=== PATIENT | female | born 1965 | race Caucasian/White ===

== ENCOUNTER 2025-07-10 14:51 | Emergency (ER) | payer MEDICAID ==
[~2025-07-10] VITALS: Ht 167.6 cm; Wt 89.3 kg
[2025-07-10 14:56] VITALS: BP 188/86; PULSE 79; RESP 16; TEMP 98; O2SAT 98
--- NOTE | 2025-07-10 15:08 | ELECTROCARDIOGRAPH REPORT ---
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 JOSE De Leon Measurements Intervals [place] Rate: 78 P: 32 OK: 134 QRS: 11 QRSD: 91 T: 236 QT: 450 QTc: 513 Interpretive Statements Sinus rhythm Nonspecific repol abnormality, diffuse leads Prolonged QT interval Electronically Signed On 07-11-2025 17:18:[address] JOSE De Leon Please click the below link to view image of tracing.
== END 2025-07-10 17:48 | disposition left against medical advice (07) ==
LOC: ER 14:53
DX: R51.9 Headache, unspecified (principal); R42 Dizziness and giddiness; Z53.21 Procedure and treatment not carried out due to patient leaving prior to being seen by health care provider
CPT/HCPCS: 93005; 99281